=== PATIENT | male | born 1980 | race African-American/Black ===

== ENCOUNTER 2021-03-31 08:45 | Emergency (ER) | payer MEDICAID ==
[~2021-03-31] VITALS: Ht 172.7 cm; Wt 78.9 kg
--- NOTE | 2021-03-31 08:50 | NUR ---
BIB EMS and pt brought directly to room 2B. Pt states he is homeless, hungry, tired and has not slept for about seven days. Pt is ambulatory and is calm/cooperative upon arrival. Pt states "I'm suicidal". Suicidal/safety precautions implemented per hospital protocol. No 1:1 sitter available.
[2021-03-31 09:10] LABS: MEAN CORPUSCULAR HEMOGLOBIN 30.8 uug (23.8-33.4); MEAN CORPUSCULAR VOLUME 89.6 fL (73.0-96.2); PLATELET COUNT (AUTO) 320 K/uL (152-348)
[2021-03-31 09:23] LABS: *BILIRUBIN,URIN NEGATIVE (NEGATIVE); *BLOOD, URINE NEGATIVE (NEGATIVE); *CLARITY,URINE CLEAR (CLEAR); *COLOR,URINE YELLOW (YELLOW); *KETONES,URINE NEGATIVE (NEGATIVE); *UROBILINOGEN,URINE 0.2 E.U./dl (NORMAL); LEUKOCYTE ESTERASE ,URINE NEGATIVE (NEGATIVE); NITRITE, URINE NEGATIVE (NEGATIVE); UGLUCOSE NEGATIVE (NEGATIVE)
--- NOTE | 2021-03-31 09:29 | NUR ---
Pt watching TV and eating breakfast, NAD noted.
[2021-03-31 09:35] LABS: ALANINE AMINOTRANSFERASE 36 U/L (16-63); ALKALINE PHOSPHATASE 77 U/L (50-136); ASPARTATE AMINOTRANSFERASE 31 U/L (15-37); BILIRUBIN,DIRECT 0.1 mg/dL (0.0-0.2); BILIRUBIN,TOTAL 0.5 mg/dL (0.2-1.0); CARBON DIOXIDE 28 mmol/L (21-32); CHLORIDE 104 mmol/L (98-107); CREATINE KINASE, TOTAL 839 U/L (39-308); CREATININE 0.9 mg/dL (0.6-1.3); GLUCOSE 104 mg/dL (74-106); POTASSIUM 4.1 mmol/L (3.5-5.1); TOTAL PROTEIN, SERUM 7.5 g/dL (6.4-8.2); UREA NITROGEN, BLOOD 9 mg/dL (7-18)
[2021-03-31 09:41] LABS: ETHANOL < 3 MG/DL (0-0)
[2021-03-31 09:42] LABS: *AMPHETAMINE, URINE POSITIVE (NEGATIVE); *CANNABINOID, URINE NEGATIVE (NEGATIVE); *COCCAINE, URINE NEGATIVE (NEGATIVE); *OPIATE, URINE NEGATIVE (NEGATIVE); *PHENCYCLIDINE SCREEN,URINE NEGATIVE (NEGATIVE)
[2021-03-31 09:51] LABS: ACETAMINOPHEN < 2.0 ug/mL (10-30)
--- NOTE | 2021-03-31 10:05 | NUR ---
Spoke with Odalys who stated she will come eval the pt for placement.
--- NOTE | 2021-03-31 11:26 | NUR ---
10:00am: Primary Grade Teacher consultation requested for SI. This INSPECTOR CHIEF arrived to the ED and met with Dr. Steinberg to discuss patient's needs. Patient is a 41 year old male who was brought to the ED by paramedics, reporting that he has not slept in nearly 7 days, is homeless, and is having thoughts of SI. Per ED physician's report, patient has a history of Depression and is treated by Effexor, however patient has not taken medication for 2 weeks. This INSPECTOR CHIEF met with the patient, bedside in the ED. Patient was asleep when this INSPECTOR CHIEF entered the room, however was easily arousable. Patient sat up in bed and was receptive to speaking with this INSPECTOR CHIEF. Patient reports being homeless, and having thoughts of wanting to hang himself. Patient denies use of drugs or alcohol, although per patient's toxicology report, patient tested positive for amphetamines. Patient stated he does suffer from Depression, but has not been taking his medications for several weeks. This INSPECTOR CHIEF offered the option of voluntary inpatient psychiatric hospitalization, and patient was in agreement with this plan. This INSPECTOR CHIEF also offered patient's homeless community resources, and patient was receptive. Patient is alert, oriented, but speech was muffled at times. Patient denies hallucinations. Patient denies HI. PLAN: this INSPECTOR CHIEF to fax referral to Shane at [facility], for voluntary inpatient psychiatric hospitalization. This INSPECTOR CHIEF to provide patient with homeless community resources.
--- NOTE | 2021-03-31 11:30 | NUR ---
Pt was seen by Odalys who stated she has faxed pt's information to [facility] Karen for possible voluntary admission.
--- NOTE | 2021-03-31 11:40 | NUR ---
This BLOOD BANK COORDINATOR faxed patient's facesheet, ED summary report, ED physician's notes, COVID test results, and toxicology report to Shane at [facility], fax [phone], tel # [phone]. Shane confirmed receipt of the fax.
--- NOTE | 2021-03-31 11:55 | NUR ---
This NEWSROOM INTERN left the homeless community resources packet and the homeless patient waiver form with NOAH Franco to provide to patient upon discharge. The resources include: a list of year round shelters [facility] [address], ; [facility] [address] [facility], ; and [facility] [address] [facility], ; [facility], ; [facility], [address], [address], ; [facility], [address] [facility], [address], . [facility], [facility], [address] [address], [address], [facility], [address] [place] [address], [facility], [facility], [address] [place] [address], [facility], [address] [facility], [address], (men only [facility] homeless directory which provides a list of places that individuals can go to throughout the week for hot meals, sack lunches, food pantries, and showers; a list of mental health clinics: [facility] [address] [place] [address], ; [facility] [address] [place] [address], ; [facility] [address] [place] [address], ; a list of medical clinics: [facility] [address] [facility] [address], [place]. [place], ; [facility] [address] [facility], [address], [place] [address]; [facility] [address] [place] [address], ; and a list of substance abuse programs: [facility]stance [facility] Self-helpline ; [facility] ; [facility] ; [facility] ; [facility] ; [facility] [phone]; [facility] [phone]. SW also provided patient with information on locations of pharmacies.
--- NOTE | 2021-03-31 13:00 | NUR ---
Pt eating lunch, disposition pending, NAD noted.
--- NOTE | 2021-03-31 14:00 | NUR ---
[facility] stated the [facility] accepted by , pt will be going to [address], call [phone] ext.[phone] for report. Called [facility] for transport, eta 1630.
--- NOTE | 2021-03-31 16:50 | NUR ---
Pt trans to [facility] via [facility]. No acute distress noted upon transfer. SBAR report given via telephone to Juju.
== END 2021-03-31 17:12 ==
LOC: ER 08:45
DX: R45.851 Suicidal ideations (principal); Z59.0 Homelessness; Z20.822 Contact with and (suspected) exposure to COVID-19; F32.9 Major depressive disorder, single episode, unspecified; Z79.899 Other long term (current) drug therapy; Z91.14 Patient's other noncompliance with medication regimen
CPT/HCPCS: 36415; 70030-TC; 83605; 84443; 85025; 93005; A4663; G0480